=== PATIENT | female | born 1985 | race Caucasian/White ===

== ENCOUNTER 2017-04-15 08:59 | Emergency (ER) | payer MEDICAID, OTHER ==
[2017-04-15] MEDS: ACETAMINOPHEN 325 MG TAB PO (09:45)
[2017-04-15] MEDS: KETOROLAC 30 MG INJ IM (09:47)
== END 2017-04-15 10:15 | disposition home or self-care (01) ==
LOC: FTE 08:59
DX: J02.9 Acute pharyngitis, unspecified (principal); R50.9 Fever, unspecified
CPT/HCPCS: 96372; 99284-25

== ENCOUNTER 2018-03-14 09:34 | Emergency (ER) | payer MEDICAID | END 2018-03-14 10:14 | disposition home or self-care (01) | LOC: FTE 09:34 | DX: O99.511 Diseases of the respiratory system complicating pregnancy, first trimester (principal); J02.9 Acute pharyngitis, unspecified; Z3A.08 8 weeks gestation of pregnancy | CPT/HCPCS: 99282; Z7502 ==

== ENCOUNTER 2018-04-19 15:39 | Emergency (ER) | payer MEDICAID ==
[2018-04-19] MEDS: ACETAMINOPHEN 325 MG TAB PO (18:18)
[2018-04-19 18:51] LABS: ADD UMIC NO; UR ASCORBIC ACID 40 mg/dL (NEGATIVE); UR BILIRUBIN (Dip) NEGATIVE (NEGATIVE); UR BLOOD (Dip) NEGATIVE (NEGATIVE); UR CALCIUM OXALATE CRYSTAL MODERATE /HPF (NONE SEEN); UR CLARITY SLIGHTLY CLOUDY (CLEAR); UR COLOR YELLOW (YELLOW); UR GLUCOSE (Dip) NEGATIVE (NEGATIVE); UR KETONES (Dip) NEGATIVE (NEGATIVE); UR LEUKOCYTE ESTERASE (Dip) NEGATIVE Leu/ul (NEGATIVE); UR MUCUS MODERATE /HPF (NONE SEEN); UR NITRITE (Dip) NEGATIVE (NEGATIVE); UR RBC 1 /HPF (0-5); UR SPECIFIC GRAVITY (Dip) 1.029 (1.003-1.030); UR SQUAMOUS EPITHELIAL CELL FEW /HPF (FEW); UR TOTAL PROTEIN (Dip) NEGATIVE (NEGATIVE); UR UROBILINOGEN (Dip) NEGATIVE (NEGATIVE); UR WBC 0 /HPF (0-5)
== END 2018-04-19 20:47 | disposition home or self-care (01) ==
LOC: FTE 15:39
DX: O99.89 Other specified diseases and conditions complicating pregnancy, childbirth and the puerperium (principal); M54.5 Low back pain; Z3A.15 15 weeks gestation of pregnancy
CPT/HCPCS: 76801; 81001; 81003; 99284-25

== ENCOUNTER 2018-09-04 12:32 | Emergency (ER) | payer MEDICAID ==
[2018-09-04] MEDS: ACETAMINOPHEN 325 MG TAB PO (14:01)
[2018-09-04 14:05] LABS: ADD UMIC NO; UR ASCORBIC ACID NEGATIVE (NEGATIVE); UR BILIRUBIN (Dip) NEGATIVE (NEGATIVE); UR BLOOD (Dip) NEGATIVE (NEGATIVE); UR CLARITY CLEAR (CLEAR); UR COLOR YELLOW (YELLOW); UR GLUCOSE (Dip) 2+ mg/dL (NEGATIVE); UR KETONES (Dip) NEGATIVE (NEGATIVE); UR LEUKOCYTE ESTERASE (Dip) NEGATIVE Leu/ul (NEGATIVE); UR NITRITE (Dip) NEGATIVE (NEGATIVE); UR SPECIFIC GRAVITY (Dip) 1.009 (1.003-1.030); UR TOTAL PROTEIN (Dip) NEGATIVE (NEGATIVE); UR UROBILINOGEN (Dip) NEGATIVE (NEGATIVE)
== END 2018-09-04 15:02 | disposition home or self-care (01) ==
LOC: FTE 12:32
DX: O99.353 Diseases of the nervous system complicating pregnancy, third trimester (principal); G44.209 Tension-type headache, unspecified, not intractable; Z3A.33 33 weeks gestation of pregnancy
CPT/HCPCS: 81003; 99283

== ENCOUNTER 2018-09-17 11:11 | Outpatient (CLI) | payer MEDICAID ==
[2018-09-17 11:27] LABS: ADD MAN DIFF? NO
[2018-09-17 11:30] LABS: BASOPHILS % 0.3 % (0.0-2.0); EOSINOPHILS # 0.6 10^3/ul (0.0-0.5); EOSINOPHILS % 6.7 % (0.0-7.0); HEMATOCRIT 35.5 % (37.0-47.0); HEMOGLOBIN 11.8 g/dl (12.0-16.0); LYMPHOCYTES # 2.3 10^3/ul (0.8-2.9); LYMPHOCYTES % 25.7 % (15.0-51.0); MEAN CORPUSCULAR HEMOGLOBIN 29.6 pg (29.0-33.0); MEAN CORPUSCULAR HGB CONC 33.2 g/dl (32.0-37.0); MEAN CORPUSCULAR VOLUME 89.2 fl (82.0-101.0); MONOCYTE # 0.5 10^3/ul (0.3-0.9); MONOCYTES % 5.5 % (0.0-11.0); NEUTROPHIL # 5.5 10^3/ul (1.6-7.5); NEUTROPHILS % 61.1 % (39.0-77.0); PLATELET COUNT 212 10^3/UL (140-415); RED BLOOD COUNT 3.98 10^6/ul (4.20-5.40); RED CELL DISTRIBUTION WIDTH 13.5 % (11.5-14.5)
[2018-09-17 11:48] LABS: ALANINE AMINOTRANSFERASE 6 IU/L (13-69); ALBUMIN 3.6 g/dl (3.3-4.9); ALBUMIN/GLOBULIN RATIO 1.05; ALKALINE PHOSPHATASE 153 IU/L (42-121); ANION GAP 10 (5-13); ASPARTATE AMINO TRANSFERASE 15 IU/L (15-46); BILIRUBIN,INDIRECT 0.3 mg/dl (0-1.1); BILIRUBIN,TOTAL 0.3 mg/dl (0.2-1.3); BLOOD UREA NITROGEN 6 mg/dl (7-20); CALCIUM 9.1 mg/dl (8.4-10.2); CARBON DIOXIDE 21 mmol/L (21-31); CHLORIDE 106 mmol/L (97-110); CREATININE 0.37 mg/dl (0.44-1.00); Estimated GFR > 60 mL/min (>60); GLUCOSE 129 mg/dl (70-220); POTASSIUM 3.7 mmol/L (3.5-5.1); SODIUM 137 mmol/L (135-144); URIC ACID 2.8 mg/dl (3.1-7.9)
[2018-09-17 11:50] LABS: ADD UMIC YES; UR ASCORBIC ACID NEGATIVE (NEGATIVE); UR BACTERIA FEW /HPF (NONE SEEN); UR BILIRUBIN (Dip) NEGATIVE (NEGATIVE); UR BLOOD (Dip) NEGATIVE (NEGATIVE); UR CLARITY CLEAR (CLEAR); UR COLOR AMBER (YELLOW); UR GLUCOSE (Dip) 2+ mg/dL (NEGATIVE); UR KETONES (Dip) TRACE mg/dL (NEGATIVE); UR LEUKOCYTE ESTERASE (Dip) 1+ Leu/ul (NEGATIVE); UR MUCUS FEW /HPF (NONE SEEN); UR NITRITE (Dip) NEGATIVE (NEGATIVE); UR RBC 5 /HPF (0-5); UR SPECIFIC GRAVITY (Dip) 1.021 (1.003-1.030); UR SQUAMOUS EPITHELIAL CELL MODERATE /HPF (FEW); UR TOTAL PROTEIN (Dip) NEGATIVE (NEGATIVE); UR UROBILINOGEN (Dip) NEGATIVE (NEGATIVE); UR WBC 10 /HPF (0-5)
[2018-09-17] MEDS: ACETAMINOPHEN 500 MG TAB PO (13:57)
== END 2018-09-17 14:14 | disposition home or self-care (01) ==
LOC: OBT 11:11 → L-D 11:12 → OBT 14:14
DX: O24.419 Gestational diabetes mellitus in pregnancy, unspecified control (principal); R51 Headache; Z3A.35 35 weeks gestation of pregnancy
CPT/HCPCS: 76815; 76818; 80053; 81001; 84560; 85025

== ENCOUNTER 2018-10-19 07:58 | Inpatient (IN) | payer MEDICAID ==
[2018-10-19] MEDS: LACTATED RINGER'S 1,000 ML IV ×3 (08:25→22:34)
[2018-10-19] MEDS: AMPICILLIN 2 GM/NS (PMX) 100 ML IV (08:26)
[2018-10-19] MEDS ORDERED: METHYLERGONOVINE 0.2 MG INJ IM ×2 (08:30→15:00)
[2018-10-19] MEDS ORDERED: CARBOPROST 250 MCG INJ IM ×2 (08:30→15:00)
[2018-10-19] MEDS ORDERED: MISOPROSTOL 200 MCG TAB PR ×2 (08:30→15:00)
[2018-10-19] MEDS ORDERED: OXYTOCIN 30 UNITS/LR 500 ML IV ×2 (08:30→15:00)
[2018-10-19] MEDS ORDERED: LIDOCAINE 1% (MPF) 30 ML INJ INJ (08:30)
[2018-10-19] MEDS ORDERED: BUTORPHANOL 2 MG INJ IV (08:30)
[2018-10-19 09:17] LABS: ADD MAN DIFF? NO
[2018-10-19 09:18] LABS: WHITE BLOOD COUNT 9.6 10^3/ul (4.8-10.8)
[2018-10-19 09:18] LABS: BASOPHILS % 0.3 % (0.0-2.0); EOSINOPHILS # 0.7 10^3/ul (0.0-0.5); EOSINOPHILS % 6.8 % (0.0-7.0); HEMATOCRIT 36.3 % (37.0-47.0); HEMOGLOBIN 12.1 g/dl (12.0-16.0); LYMPHOCYTES # 2.1 10^3/ul (0.8-2.9); LYMPHOCYTES % 22.1 % (15.0-51.0); MEAN CORPUSCULAR HEMOGLOBIN 28.7 pg (29.0-33.0); MEAN CORPUSCULAR HGB CONC 33.3 g/dl (32.0-37.0); MEAN PLATELET VOLUME 10.3 fl (7.4-10.4); MONOCYTE # 0.6 10^3/ul (0.3-0.9); MONOCYTES % 6.2 % (0.0-11.0); NEUTROPHIL # 6.2 10^3/ul (1.6-7.5); NEUTROPHILS % 64.3 % (39.0-77.0); PLATELET COUNT 233 10^3/UL (140-415); RED BLOOD COUNT 4.22 10^6/ul (4.20-5.40); RED CELL DISTRIBUTION WIDTH 14.4 % (11.5-14.5)
[2018-10-19 09:55] LABS: INR 0.88; PT RATIO 0.9
[2018-10-19 09:56] LABS: PARTIAL THROMBOPLASTIN TIME 24.8 Sec (23.0-35.0)
[2018-10-19 12:15] LABS: HEPATITIS B SURFACE ANTIGEN NEGATIVE (NEGATIVE)
[2018-10-19] MEDS ORDERED: AMPICILLIN 1 GM/NS (PMX) 50 ML IV (12:30)
[2018-10-19] MEDS ORDERED: HYDROmorphONE 0.5 MG/0.5 ML SYG IM (14:05)
[2018-10-19] MEDS: HYDROmorphONE 0.5 MG/0.5 ML SYG IV (14:15)
[2018-10-19] MEDS ORDERED: HYDROmorphONE 0.5 MG/0.5 ML SYG IV (14:30)
[2018-10-19] MEDS: OXYTOCIN 30 UNITS/LR 500 ML IV ×3 (14:32→14:57)
[2018-10-19] MEDS ORDERED: ACETAMINOPHEN 325 MG TAB PO (15:00)
[2018-10-19] MEDS ORDERED: DIBUCAINE 1% 30 GM OINT TOP (15:00)
[2018-10-19] MEDS ORDERED: ONDANSETRON 4 MG INJ IV (15:00)
[2018-10-19] MEDS: IBUPROFEN 600 MG TAB PO ×3 (15:00→23:52)
[2018-10-19] MEDS ORDERED: DIPHENHYDRAMINE 25 MG CAP PO (15:00)
[2018-10-19] MEDS ORDERED: ZOLPIDEM 5 MG TAB PO (15:00)
[2018-10-19] MEDS ORDERED: MAGNESIUM HYDROXIDE 30ML CUP PO (15:00)
[2018-10-19] MEDS ORDERED: NACL 0.9% 3 ML SYG IV (15:00)
[2018-10-19] MEDS: WITCH HAZEL/GLYCERIN PAD PR (17:59)
[2018-10-19] MEDS: LANOLIN HPA 1 PKT TOP (18:00)
[2018-10-19] MEDS: BENZOCAINE 20% 56 ML SPRAY TOP (18:00)
[2018-10-19 19:37] LABS: RAPID PLASMA REAGIN NONREACTIVE (NR)
[2018-10-19] MEDS: SENNA/DOCUSATE NA (8.6MG/50MG) TAB PO (21:15)
[2018-10-20] MEDS: OXYCODONE/ASPIRIN (4.88/325) TAB PO (04:47)
[2018-10-20] MEDS: LACTATED RINGER'S 1,000 ML IV ×3 (05:38→19:00)
[2018-10-20] MEDS: IBUPROFEN 600 MG TAB PO ×2 (06:00→12:00)
[2018-10-20 08:17] LABS: HEMATOCRIT 32.4 % (37.0-47.0); HEMOGLOBIN 10.8 g/dl (12.0-16.0)
[2018-10-20] MEDS ORDERED: SEVOFLURANE 15 MIN (15:30)
[2018-10-20] MEDS ORDERED: ROPIVACAINE 0.2% 20 ML VIAL (15:49)
[2018-10-20] MEDS ORDERED: MIDAZOLAM 1 MG/ML 2 ML INJ (15:49)
[2018-10-20] MEDS ORDERED: ROCURONIUM 50 MG INJ ×2 (15:49→18:29)
[2018-10-20] MEDS ORDERED: PROPOFOL 20 ML (15:49)
[2018-10-20] MEDS ORDERED: FENTAnyl 50 MCG/ML VIAL ×2 (15:49→18:49)
[2018-10-20] MEDS ORDERED: FENTAnyl 50 MCG/ML VIAL IV (16:00)
[2018-10-20] MEDS ORDERED: OXYCODONE/ACETAMINOPHEN (5/325) TAB PO (16:00)
[2018-10-20] MEDS ORDERED: EPHEDrine 25 MG/5 ML SYG IV (16:00)
[2018-10-20] MEDS ORDERED: METOCLOPRAMIDE 10 MG INJ IV (16:00)
[2018-10-20] MEDS ORDERED: HYDROmorphONE 1 MG/5 ML IV SYRINGE IV ×2 (16:00)
[2018-10-20] MEDS ORDERED: DEXAMETHASONE 4 MG/ML 5 ML INJ (16:34)
[2018-10-20] MEDS ORDERED: ONDANSETRON 4 MG INJ (16:34)
[2018-10-20] MEDS ORDERED: METOCLOPRAMIDE 10 MG INJ (16:34)
[2018-10-20] MEDS ORDERED: CEFAZOLIN 1 GM INJ (16:34)
[2018-10-20] MEDS ORDERED: KETOROLAC 30 MG INJ (16:35)
[2018-10-20] MEDS: BUPIVACAINE 0.25%/EPI (SDV) 30 ML INJ (16:44)
[2018-10-20] MEDS ORDERED: VANCOMYCIN 1 GM (PMX) 250 ML (16:58)
[2018-10-20] MEDS ORDERED: GLYCOPYRROLATE 0.4 MG INJ (17:05)
[2018-10-20] MEDS ORDERED: NEOSTIGMINE 3 MG/3 ML SYRINGE (17:05)
[2018-10-20] MEDS: FENTAnyl 50 MCG/ML VIAL IV ×2 (17:30→17:40)
[2018-10-20] MEDS: ONDANSETRON 4 MG INJ IV (17:30)
[2018-10-20] MEDS ORDERED: PHENYLephrine (100 MCG/ML) 10ML SYG (18:29)
[2018-10-20] MEDS ORDERED: EPHEDrine 25 MG/5 ML SYG (18:29)
[2018-10-20] MEDS ORDERED: SUGAMMADEX SODIUM 200 MG/2 ML VIAL IV (18:42)
[2018-10-20] MEDS: KETOROLAC 60 MG INJ IM (19:00)
[2018-10-20] MEDS: ACETAMINOPHEN 500 MG TAB PO (19:00)
[2018-10-20] MEDS: CIPROFLOXACIN 500 MG TAB PO (19:57)
[2018-10-20] MEDS: IBUPROFEN 800 MG TAB PO (21:40)
[2018-10-21] MEDS: LACTATED RINGER'S 1,000 ML IV ×2 (00:12→03:17)
[2018-10-21] MEDS: OXYCODONE/ASPIRIN (4.88/325) TAB PO ×2 (01:41→12:48)
[2018-10-21] MEDS: CIPROFLOXACIN 500 MG TAB PO (05:37)
[2018-10-21] MEDS: IBUPROFEN 800 MG TAB PO ×2 (05:37→14:14)
[2018-10-21 08:43] LABS: ADD MAN DIFF? NO
[2018-10-21 08:49] LABS: WHITE BLOOD COUNT 11.7 10^3/ul (4.8-10.8)
[2018-10-21 08:49] LABS: BASOPHILS % 0.2 % (0.0-2.0); EOSINOPHILS # 0.1 10^3/ul (0.0-0.5); EOSINOPHILS % 0.8 % (0.0-7.0); HEMATOCRIT 31.8 % (37.0-47.0); HEMOGLOBIN 10.4 g/dl (12.0-16.0); LYMPHOCYTES # 2.7 10^3/ul (0.8-2.9); LYMPHOCYTES % 22.9 % (15.0-51.0); MEAN CORPUSCULAR HEMOGLOBIN 28.7 pg (29.0-33.0); MEAN CORPUSCULAR HGB CONC 32.7 g/dl (32.0-37.0); MEAN CORPUSCULAR VOLUME 87.6 fl (82.0-101.0); MEAN PLATELET VOLUME 9.9 fl (7.4-10.4); MONOCYTE # 0.7 10^3/ul (0.3-0.9); MONOCYTES % 5.6 % (0.0-11.0); NEUTROPHIL # 8.2 10^3/ul (1.6-7.5); PLATELET COUNT 235 10^3/UL (140-415); RED BLOOD COUNT 3.63 10^6/ul (4.20-5.40); RED CELL DISTRIBUTION WIDTH 14.6 % (11.5-14.5)
[2018-10-21] MEDS ORDERED: MEASLES,MUMPS,RUBELLA VACCINE INJ SC* (09:00)
[2018-10-21] MEDS ORDERED: DIPHTH/TET/ACEL PERTUSS (ADULT) 0.5 ML VIAL IM* (09:00)
[2018-10-21] MEDS: SENNA/DOCUSATE NA (8.6MG/50MG) TAB PO (10:20)
[2018-10-21] MEDS: LANOLIN HPA 1 PKT TOP (10:20)
== END 2018-10-21 15:35 | disposition home or self-care (01) | DRG 798 ==
LOC: OBT 07:58 → L-D 07:59 → OBT 08:04 → L-D 08:05 → PP1 15:49
PROVIDERS: Obstetrics & Gynecology
PROC: 0UT70ZZ Resection of Bilateral Fallopian Tubes, Open Approach (ICD-10-PCS; 2018-10-20 15:00)
PROC: 10E0XZZ Delivery of Products of Conception, External Approach (ICD-10-PCS; principal; 2018-10-20 16:06)
DX: O80 Encounter for full-term uncomplicated delivery (principal); Z37.0 Single live birth; Z3A.39 39 weeks gestation of pregnancy; Z30.2 Encounter for sterilization
CPT/HCPCS: 85014; 85018; 85025; 85610; 85730; 86592; 86850; 86900; 86901; 87340; 88302